=== PATIENT | male | born 1995 | race Two or more races ===

== ENCOUNTER 2018-11-25 22:02 | Emergency (ER) | payer MEDICAID, OTHER ==
--- NOTE | 2018-11-25 22:15 | NUR ---
CALLED TO TRIAGE NO ANSWER
--- NOTE | 2018-11-25 22:20 | NUR ---
CALLED TO TRIAGE NO ANSWER
--- NOTE | 2018-11-25 22:25 | NUR ---
CALLED TO TRIAGE NO ANSWER
== END 2018-11-25 22:30 | disposition left against medical advice (07) ==
LOC: ER 22:04
DX: M54.9 Dorsalgia, unspecified (principal); Z53.21 Procedure and treatment not carried out due to patient leaving prior to being seen by health care provider